=== PATIENT | male | born 1955 | race Caucasian/White ===

== ENCOUNTER 2020-12-21 15:00 | Emergency (ER) | payer OTHER, SELFPAY ==
[2020-12-21 15:01] VITALS: BP 135/80; PULSE 105; RESP 26; TEMP 39.1; O2SAT 93; BMI 31.5
--- NOTE | 2020-12-21 15:20 | EKG12_ITS ---
Test Reason : GENERAL ILLNESS Blood Pressure : / mmHG Vent. Rate : 099 BPM Atrial Rate : 099 BPM P-R Int : 186 ms QRS Dur : 140 ms QT Int : 376 ms P-R-T Axes : 062 075 030 degrees QTc Int : 482 ms Normal sinus rhythm with sinus arrhythmia Right bundle branch block Abnormal ECG Confirmed by SACHIN HANNAH, KIMMIE ([id number]), associate editor SILVERIO BOND ([id number]) on 12/24/2020 10:07:38 AM Referred By: KATYA Confirmed By:KIMMIE STEPHENSON MD
--- NOTE | 2020-12-21 15:22 | EDS_ITS ---
HPI History of Present Illness Chief Complaint: General Illness Informant: patient Onset/Context/Timing Onset: Days (3 days) Context: Gradual Onset Current Severity: Moderate Maximum Severity: Moderate Narrative Narrative: Patient presents secondary to fever, chills, body aches, headache for the past 3 days. He had decreased p.o. appetite but has been forcing himself to eat. No known exposures to Covid. He has not been vaccinated. He does report shortness of breath at rest and worse with exertion. PFSH [facility] Medical History (Updated 12/21/20 @ 18:[address] Kristin Alba MD) Prostate cancer no medical history Home Medications sildenafil [Viagra] 25 mg PO DAILY PRN 12/21/20 [History Last Taken Unknown] Allergy/AdvReac Type Severity Reaction Status Date / Time No Known Allergies Allergy Verified 12/21/20 15:04 no surgical history Social History Smoking Status: Never smoker ROS ROS ED Constitutional Constitutional ED: Reports chills, fever(s), subjective and sweats ENT ENT ED: Denies ear pain Cardiovascular Cardiovascular: Denies chest pain or palpitations Respiratory/Chest Respiratory/Chest: Reports cough, dyspnea and sputum Gastrointestinal Gastrointestinal: Denies abdominal pain, diarrhea, nausea or vomiting Genitourinary Genitourinary ED: Denies dysuria Musculoskeletal Musculoskeletal: Reports myalgias Integumentary Denies rash Neurologic Neurologic: Reports headache(s) Endocrine Endocrinology: Denies polydipsia or polyuria Allergic/Immunologic Allergic/Immunologic ED: Denies urticaria EXAM Physical Exam Const Vital Signs: 12/21/20 15:01 12/21/20 15:51 12/21/20 15:52 Temperature 102.3 F H 103.3 F H Temperature Source Temporal Oral Pulse Rate 105 H 99 Respiratory Rate 26 H 19 H Respiratory Effort Normal Non-Labored Respiratory Pattern Normal Blood Pressure 135/80 H 149/107 H Blood Pressure Mean 98 121 Pulse Ox 93 94 Oxygen Delivery Method Room Air Room Air 12/21/20 17:04 Temperature 100.4 F H Temperature Source Oral Pulse Rate 88 Respiratory Rate 18 Respiratory Effort Respiratory Pattern Blood Pressure 151/89 H Blood Pressure Mean 109 Pulse Ox 95 Oxygen Delivery Method Room Air Positive well nourished and well developed General Appearance ED: well developed HEENT Reports moist mucous membranes Eyes PERRL and EOMs intact bilaterally Neck supple Chest Wall inspection of chest normal and palpation of chest normal Resp normal respiratory effort Auscultation: diminished lung sounds Cardio regular rate and regular rhythm GI normal to inspection, nondistended, normoactive bowel sounds and non-tender Palpation: soft Extremity normal to inspection Neuro oriented x3 and no sensory deficits noted Sensorium / Orientation: alert Motor Exam: strength 5/5 throughout Psych mental status grossly normal Skin no rashes or lesions noted MDM MDM MDM Narrative Medical decision making narrative: Rapid Covid swab is obtained. Chest x-ray, EKG, labs are obtained. Patient is given Tylenol for fever. Lab Data Attestation: I reviewed the patient's lab results. Labs: Laboratory Results - last 24 hr 12/21/20 12/21/20 12/21/20 15:45 15:45 15:45 WBC 8.6 RBC 5.37 Hgb 16.2 Hct 47.4 MCV 88.3 MCH 30.2 MCHC 34.2 RDW Std Deviation 41.0 RDW Coeff of Viraj 12.6 Plt Count 176 MPV 10.1 Immature Gran % (Auto) 0.200 Neut % (Auto) 85.8 H Lymph % (Auto) 5.3 L [place] % (Auto) 8.4 Eos % (Auto) 0.0 Baso % (Auto) 0.3 Absolute Neuts (auto) 7.4 Absolute Lymphs (auto) 0.46 L Nucleated RBC % 0 Differential Comment SEE COMMENT Platelet Estimate ADEQUATE RBC Morphology N CHROM Anisocytosis RARE D-Dimer Quant (PE/DVT) 2.67 H* Sodium 137 Potassium 4.3 Chloride 103 Carbon Dioxide 28.0 Anion Gap 6 BUN 18 Creatinine 1.11 Estim Creat Clear Calc 69.42 Est GFR (MDRD) Af Amer 86 Est GFR (MDRD) Non-Af 71 BUN/Creatinine Ratio 16.2 Glucose 119 H Lactic Acid Calcium 8.6 Total Bilirubin 0.70 AST 92 H ALT 139 H Alkaline Phosphatase 91 Total Protein 7.7 Albumin 3.6 Globulin 4.1 Albumin/Globulin Ratio 0.9 Procalcitonin 12/21/20 12/21/20 15:45 15:45 WBC RBC Hgb Hct MCV MCH MCHC RDW Std Deviation RDW Coeff of Viraj Plt Count MPV Immature Gran % (Auto) Neut % (Auto) Lymph % (Auto) [place] % (Auto) Eos % (Auto) Baso % (Auto) Absolute Neuts (auto) Absolute Lymphs (auto) Nucleated RBC % Differential Comment Platelet Estimate RBC Morphology Anisocytosis D-Dimer Quant (PE/DVT) Sodium Potassium Chloride Carbon Dioxide Anion Gap BUN Creatinine Estim Creat Clear Calc Est GFR (MDRD) Af Amer Est GFR (MDRD) Non-Af BUN/Creatinine Ratio Glucose Lactic Acid 1.2 Calcium Total Bilirubin AST ALT Alkaline Phosphatase Total Protein Albumin Globulin Albumin/Globulin Ratio Procalcitonin 0.30 H Radiography Chest X-Ray - ED: 1 View, Read by ED Physician, Normal, Heart, Lungs and Mediastinum Diagnostic Testing: Radiology Impression Chest X-Ray 12/21/20 15:46 IMPRESSION: No airspace consolidation or pleural effusion. Electronically Signed: Abel Majano MD ([place]) at 16:23 EDT , Service support , Chest CTA 12/21/20 16:30 IMPRESSION: No central or segmental pulmonary embolism. Limited due to insufficient pulmonary artery enhancement. Electronically Signed: Abel Majano MD ([place]) at 17:21 EDT , Service support , EKG Initial EKG: Attestation: I personally reviewed and interpreted this EKG as follows: Interpretation: Sinus Rhythm (Sinus at 99 with right bundle branch block. No acute ischemia. No prior studies available for comparison.) Treatment and Re-Evaluation Comments:: On repeat evaluation patient does to feel improved. Fever is down. Rapid Covid test is negative, however my suspicion remains high. Lab work is reviewed with him. He does have elevation in his ALT and AST. He denies any abdominal pain. Viral respiratory panel as well as Covid PCR are ordered. eugenia results are pending. Patient at this point is stable for discharge to home. If any of these test return positive I will call him tonight to let him know. Otherwise treatment at this point is supportive. He was encouraged to follow-up with his PCP this week for repeat evaluation. Return instructions are provided. Discharge Plan Triage Chief Complaint: General Illness ED Provider: Kristin Alba Dx/Rx/DC Orders Clinical Impression: Acute viral syndrome, Transaminitis Instructions: ED Viral Syndrome (Adult) Prescriptions: No Action sildenafil [Viagra] 25 mg Tablet 25 mg PO DAILY PRN (Reason: Erectile Dysfunction) RF: 0 Primary Care Provider: Jonatan Bennett Referrals: Jonatan Bennett MD [Primary Care Provider] - 3-5 Days Disposition Disposition: Home, self care
--- NOTE | 2020-12-21 15:25 | NURSING ---
NO OLD EKGS
--- NOTE | 2020-12-21 15:46 | RAD_ITS ---
STUDY: X-RAY CHEST REASON FOR EXAM: Male, 65 years old. cough TECHNIQUE: AP COMPARISON: None. FINDINGS: The lungs are clear and expanded. There is no demonstrated pleural abnormality. Normal size heart. Normal mediastinum and edwina. Normal visualized pulmonary arteries. There is atherosclerotic tortuosity of the aortic arch and descending thoracic aorta. Normal visualized thoracic spine. Normal visualized ribs, clavicles, and shoulders. There is no demonstrated abnormality of the visualized soft tissue structures of the upper abdomen. RAD/Chest 1 View (Portable) IMPRESSION: No airspace consolidation or pleural effusion. Electronically Signed: bAel Majano MD ([place]) at 16:23 EDT , Service support ,
[2020-12-21] MEDS: Acetaminophen 500 MG Tablet 1000 MG PO (15:48)
[2020-12-21 15:51] VITALS: BP 149/107; PULSE 99; RESP 19; TEMP 39.6; O2SAT 94
[2020-12-21 16:01] LABS: Absolute Lymphocyte Count 0.46 X10^3/uL (0.83-4.51); Absolute Neutrophil Count 7.4 X10^3/uL (2.0-7.7); Basophil# 0.03 X10^3/uL; Basophil% 0.3 % (0-1); Hematocrit 47.4 % (40-54); Hemoglobin 16.2 g/dL (13.0-16.5); Lymphocyte # 0.46 X10^3/ul (0.83-4.51); Lymphocyte % 5.3 % (19-41); Mean Corp Hgb Conc 34.2 g/dL (32-36); Mean Corpuscular Hgb 30.2 pg (27.0-32.0); Mean Corpuscular Volume 88.3 fL (80-94); Mean Platelet Vol. 10.1 fl (6.2-12.0); Monocyte# 0.72 X10^3/uL; Monocyte% 8.4 % (0-10); NRBC Flagged by Analyzer 0 % (0-5); Neutrophil # 7.37 X10^3/uL (2.7-7.7); Neutrophil % 85.8 % (47-70); POSITIVE DIFFERENTIAL YES; Platelet Count 176 K/mm3 (150-450); RBC Distribution Width CV 12.6 % (11.6-14.6); Red Blood Count 5.37 M/mm3 (4.6-6.2); White Blood Count 8.6 K/mm3 (4.4-11.0)
[2020-12-21 16:05] LABS: Differential Indicated SCAN CRITERIA MET
[2020-12-21 16:17] LABS: ALB/GLOB Ratio 0.9 RATIO (0.9-2.4); AST(SGOT) 92 U/L (15-37); Alanine Aminotransfer ALT/SGPT 139 U/L (16-61); Albumin, Serum 3.6 g/dL (3.2-5.0); Alkaline Phosphatase 91 U/L (45-117); Anion Gap 6 (5-15); BUN 18 mg/dL (7-18); BUN/Creat Ratio 16.2 RATIO (10-20); Calcium,Total 8.6 mg/dL (8.5-10.1); Chloride 103 mmol/L (98-107); Creatinine, Serum 1.11 mg/dL (0.70-1.30); D-Dimer Quantitative (DVT/PE) 2.67 FEU/ug/m (0.27-0.49); EST Glomerular Filtration Rate 71 mL/min (>60); Est Glom Filt Rate - Afr Amer 86 mL/min (>60); Estimated Creatinine Clearance 69.42 ml/min; Globulin 4.1 g/dL (2.2-4.2); Glucose 119 mg/dL (74-106); Potassium 4.3 mmol/L (3.5-5.1); Protein, Total 7.7 g/dL (6.4-8.2); Sodium Level 137 mmol/L (136-145)
[2020-12-21 16:23] LABS: Lactic Acid 1.2 mmol/L (0.4-1.9)
--- NOTE | 2020-12-21 16:30 | CT_ITS ---
STUDY: CTA CHEST REASON FOR EXAM: Male, 65 years old. sob RADIATION DOSAGE (If Supplied By Facility): CTDIvol = ( 12.84 ) mGy, DLP = ( 978.73 ) mGycm TECHNIQUE: The examination was performed with the intravenous administration of IV 100mL [id number]-[id number]. Post-processing of the angiographic images was performed, with multiplanar reformation and 3D reconstruction. Individualized dose optimization techniques were used for this CT. COMPARISON: None. FINDINGS: Normal enhancement of the main pulmonary artery and right and left pulmonary arteries. Normal enhancement of the bilateral peripheral pulmonary arteries. Limited evaluation of the lower lobe segmental branches due to motion artifact. There is no demonstrated pulmonary embolism. Normal thoracic aorta and visualized great vessels. There is no demonstrated aortic dissection. Normal heart and pericardium. There are calcifications of the coronary arteries. Normal mediastinum. Normal hilar regions. Normal visualized trachea and bronchi. The lungs are well expanded. There are a few scattered fibrotic bands in the right more than left lower lobes. Normal pleura. Normal chest wall structures. There are degenerative changes of thoracic spine. Normal visualized upper abdomen. CT/CTA Chest W/WO Contrast IMPRESSION: No central or segmental pulmonary embolism. Limited due to insufficient pulmonary artery enhancement. Electronically Signed: Abel Majano MD ([place]) at 17:21 EDT , Service support ,
[2020-12-21 16:41] LABS: Platelet Estimate ADEQUATE (ADEQ); Red Cell Morphology N CHROM NORMAL (NORM C&C)
[2020-12-21 16:42] LABS: Anisocytosis RARE
[2020-12-21 17:04] VITALS: BP 151/89; PULSE 88; RESP 18; TEMP 38; O2SAT 95
[2020-12-21 18:46] VITALS: BP 132/96; PULSE 75; RESP 20; O2SAT 97
--- NOTE | 2020-12-21 18:46 | ED.RN ---
THIS NURSE REVIEWED D/C INSTRUCTIONS WITH PT AND . BOTH VERBALIZED UNDERSTANDING OF INSTRUCTIONS. IVS D/C. IV CATHETERS INTACT. PT TOLERATED WELL. PT DENIES FURTHER NEEDS OR QUESTIONS AT THIS TIME. PT AMBULATES FROM ROOM ON OWN WITHOUT ASSISTANCE FROM STAFF
== END 2020-12-21 18:47 | disposition home or self-care (01) ==
PROVIDERS: Emergency Provider Emergency Medicine; PCP Family Medicine
DX: B34.9 Viral infection, unspecified (principal); R74.01 Elevation of levels of liver transaminase levels; M79.10 Myalgia, unspecified site; R05 Cough; R06.00 Dyspnea, unspecified; R51.9 Headache, unspecified; I45.10 Unspecified right bundle-branch block; Z85.46 Personal history of malignant neoplasm of prostate
CPT/HCPCS: 71045; 71275; 80053; 83605; 84145; 85025; 85379; 87040; 87426; 87633; 87635; 93005; 99284; Q9967; U0005; U0003

== ENCOUNTER → 2022-01-13 | Outpatient (CLI) | payer BC, SELFPAY ==
--- NOTE | 2022-01-13 14:47 | CT_ITS ---
STUDY: CT MAXILLOFACIAL SINUSES REASON FOR EXAM: Male, 66 years old. CHRONIC SINUSITIS X 1 YEAR RADIATION DOSAGE (If Supplied By Facility): CTDIvol = ( 33.06 ) mGy, DLP = ( 809.06 ) mGycm TECHNIQUE: The patient was scanned in a multi detector CT scanner. High resolution axial imaging was performed without the administration of intravenous contrast material. Sagittal and coronal images were reconstructed. Individualized dose optimization techniques were used for this CT. COMPARISON: None. FINDINGS: FRONTAL SINUSES: Normal aeration, without mucosal inflammatory disease. ETHMOIDAL SINUSES: Normal aeration, without mucosal inflammatory disease. MAXILLARY SINUSES: Partial opacification of the left maxillary sinus. SPHENOIDAL SINUSES: Normal aeration, without mucosal inflammatory disease. There is patency of the bilateral maxillary infundibuli with normal uncinate processes, ethmoid bullae, and hiatus semilunaris. There are domonique bullosa of the bilateral turbinates. Normal bilateral inferior turbinates. Normal midline nasal septum. There is patency of the bilateral nasal airways. The visualized osseous structures are normal. The visualized bilateral orbital contents are normal. CT/Sinus/Facial Bone IMPRESSION: Partial opacification of the left maxillary sinus. Electronically Signed: Chetan López MD at 15:20 EDT ,
== END | disposition home or self-care (01) ==
PROVIDERS: PCP Family Medicine; Referring Provider Otolaryngology; Visit Provider Otolaryngology
DX: J32.9 Chronic sinusitis, unspecified (principal)
CPT/HCPCS: 70486

== ENCOUNTER → 2025-06-15 | Outpatient (CLI) | payer MEDICARE, SELFPAY ==
--- OUTSIDE RECORDS SUMMARY | 2025-06-15 05:59 | XMS RPT_ITS | CCD ---
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 Glenn Julien Unavailable Reymundo HANNAH, Dr. Tate ([facility]) Unavailable David HANNAH, All Mercer Unavailable Shar CROWN BUFFER, Ailin C Unavailable Unavailable Donald HANNAH, Jonatan Berry Unavailable Praneeth, Rahda C Unavailable Unavailable Yann CROWN BUFFER, Maria De Jesus Unavailable Unavailable Marthey CROWN BUFFER, Nadine Unavailable Unavailable Odin HAY CHOPPER, Christel Unavailable Unavailable Richert CROWN BUFFER, Makenna L Unavailable Unavailab le Kassy CROWN BUFFER, Catalina M Unavailable Unavailab le [place] CROWN BUFFER, Nicky Unavailable Unavailab le [place] CROWN BUFFER, Rafaela N Unavailable Unavaila ble Unavailable Unavailable Macho CROWN BUFFER, Tyree Unavailable Unavailable Floyd COOK, Penny Berry Unavailable Unavaila ble Sonia CROWN BUFFER, Jen Unavailable ORLANDO VILLARREAL E Admitting Unavailable ORLANDO VILLARREAL E Attending Unavailable ORLANDO VILLARREAL E Primary Care Unavailable DANO VILLARREALKE E Consulting Unavailable PROVIDER, UNKNOWN Consulting Unavailable [facility] Unavailable Alesia Balderrama Unavailable Unavailable Jonatan Bennett Primary Care Unavailable Orlando Villarreal Referring Unavailable Des Walton Attending Unavailable Roof ELECTRONIC GAME DEVELOPER, Jackson Navarro Attending Unavailable Orlando Villarreal Primary Care Unavailable Orlando Villarreal Referring Unavailable Roof ELECTRONIC GAME DEVELOPER, Jackson Navarro Referring Unavailable Orlando Villarreal Primary Care Unavailable Roof ELECTRONIC GAME DEVELOPER, Jackson Navarro Attending Unavailable Medications Current Medications Medication Drug Class(es) Dates Sig (Normalized) Sig (Original) sildenafil 50 mg oral tablet (15 sources) Phosphodiesterase 5 Inhibitor Start: 06-13-2024 sildenafiL 50 mg tablet ; 1 (one) Tablet one hour prior to intercourse for 0 days Quantity: 12 {Tablet} Refills: 2 Ordered: 13-Jun-2024 SHAYY Villarreal Start: 13-Jun-2024 Comments: GoodRx--not to insurance Start: 02-19-2022 End: 10-25-2023 sildenafiL 50 mg tablet ; 1 (one) Tablet one hour prior to intercourse for 0 days Quantity: 12 {Tablet} Refills: 2 Ordered: 25-Oct-2023 WALLACE Moscoso Kenya Gutierrez Start: 19-Feb-2022 End: 25-Oct-2023 Status: Inactive Comments: GoodRx--not to insurance Start: 12-21-2020 take 1 tablet by shanna th once daily Sildenafil (Viagra) 25 mg Tablet Active 25 MG PO DAILY December 21, 2020 12:00am Comment on above: GoodRx--not to insur ance Completed/Discontinued Medications Medication Drug Class(es) Dates Sig (Normalized) Sig (Original) azithromycin 500 mg oral tablet (14 sources) Macrolide Antimicrobial Start: 02-04-2016 End: 02-07-2016 take 1 tablet by mouth once daily AZITHROMYCIN, 500MG (Oral Tablet) ; 1 (one) Tablet daily for 3 days Quantity: 3 {Tablet} Refills: 0 Ordered: 04-Feb-2016 MD Jonatan Bennett Start: 04-Feb-2016 End: 07-Feb-2016 Status: Inactive cephalexin 500 mg oral capsule (14 sources) Cephalosporin Antibacterial Start: 10-25-2023 End: 11-04-2023 cephALEXin 500 mg capsule ; 2 (two) capsule bid for 10 days Quantity: 40 {Capsule} Refills: 0 Ordered: 25-Oct-2023 MD All Hernandez Start: 25-Oct-2023 End: 04-Nov-2023 Status: Inactive ciprofloxacin 500 mg oral tablet (14 sources) Quinolone Antimicrobial Start: 01-27-2016 End: 02-01-2016 take 1 tablet by mouth twice daily CIPROFLOXACIN HCL, 500MG (Oral Tablet) ; 1 (one) Tablet two times daily for 5 days Quantity: 10 {Tablet} Refills: 0 Ordered: 27-Jan-2016 MD Jonatan Bennett Start: 27-Jan-2016 End: 01-Feb-2016 Status: Inactive Problems Active Problems Problem Classification Problem Date Documented Date Episodic/Chronic Cancer of prostate (20 sources) Malignant tumor of prostate; Translations: [Malignant neoplasm of prostate] 10-25-2023 Chronic Comment on above: s/p prostatectomy 20 16 @ [facility] Cancer of prostate (20 sources) History of malignant neoplasm of prostate; Translations: [Personal history of malignant neoplasm of prostate] 10-25-2023 Episodic Cardiac dysrhythmias (20 sources) Heart irregularly irregular; Translations: [Cardiac arrhythmia, unspecified] Onset: 05-16-2025 06-13-2024 Chronic Conduction disorders (7 sources) Heart block ; Translations: [Conduction disorder, unspecified] Onset: 08-16-2024 07-04-2024 Chronic Disorders of lipid metabolism (20 sources) Hyperlipidemia; Translations: [Hyperlipidemia, unspecified] Onset: 05-16-2025 06-13-2024 Chronic Comment on above: 10 year CV = 17.09% Essential hypertension (2 sources) Essential (primary) hypertension; Translations: [Essential (primary) hypertension] Onset: 05-16-2025 Chronic Immunizations and screening for infectious disease (20 sources) Requires diphtheria, tetanus and pertussis vaccination; Translations: [Encounter for immunization] 02-15-2014 Episodic Noninfectious gastroenteritis (20 sources) Acute gastroenteritis; Translations: [Noninfective gastroenteritis and colitis, unspecified] 02-04-2016 Episodic Other connective tissue disease (20 sources) Inflammation of rotator cuff tendon; Translations: [Other shoulder lesions, unspecified shoulder] 10-25-2023 Episodic Other ear and sense organ disorders (20 sources) Hearing loss of left ear; Translations: [Impacted cerumen, left ear] 10-25-2023 Episodic Other liver diseases (1 source) Enzyme level - finding; Translations: [Elevated transaminase measurement] Episodic Other male genital disorders (20 sources) Male erectile dysfunction, unspecified; Translations: [Impotence of organic origin] 10-25-2023 Chronic Other nutritional; endocrine; and metabolic disorders (20 sources) Body mass index 30+ - obesity; Translations: [Body mass index (BMI) 33.0-33.9, adult] 10-25-2023 Chronic Other nutritional; endocrine; and metabolic disorders (20 sources) Obesity; Translations: [Obesity, unspecified] 10-25-2023 Chronic Other nutritional; endocrine; and metabolic disorders (2 sources) Obesity, unspecified; Translations: [Obesity, unspecified] Onset: 05-16-2025 Chronic Other screening for suspected conditions (not mental disorders or infectious disease) (20 sources) Raised prostate specific antigen; Translations: [Elevated prostate specific antigen [PSA]] Onset: 05-25-2025 10-25-2023 Episodic Other upper respiratory infections (20 sources) Sinusitis; Translations: [Chronic sinusitis, unspecified] 10-25-2023 Chronic Unclassified (14 sources) Number of Children 02-15-2014 Comment on above: 3. Unclassified (14 sources) Well adult male - The patient feels well with no complaints (joint aches and pains), has good energy level and is sleeping poorly (sleeps good 3-4 hours then tosses and turns pr will go sleep in the chair). The patient has a balanced diet. 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 The patient sleeps 6 (6-7 but broken) hours per night. Note for Well adult male: MICHAEL 01/2016 lipid glucosept needs a referral for a Urologist - said it was nothing against Dr. White but does want a new referral 06-25-2020 Viral infection (20 sources) Acute viral disease; Translations: [Viral infection, unspecified] 12-23-2020 Episodic Past or Other Problems Problem Classification Problem Date Documented Da te Episodic/Chronic Unclassified (14 sources) Cold Symptoms - Symptoms include sneezing, nasal congestion, runny nose, ear fullness, dry cough and wheezing, but do not include fever, chills, general malaise, headache or facial pain. The onset was sudden 1 month(s) ago. The symptoms occur constantly. The patient describes this as moderate in severity and worsening (worse over the past two weeks.). Current treatment includes allergy medications and nasal corticosteroids. Note for Upper respiratory infection: reviewed by [facility] 10-25-2023 Unclassified (14 sources) MCR Well Adult - In general the patient feels well with no complaints, has good energy level and is sleeping well. The patient has a balanced diet. The patient exercises daily and sleeps 6 hours per night. The patient denies having trouble with bathing, dressing/grooming, toileting, preparing meals and ambulating. The patient has a Healthcare Power of Assistant Softball Coach and a Living Will. 03-17-2022 Unclassified (14 sources) Follow up consultation - The patient is here to follow-up after Emergency Room/Urgent Care ([facility] with viral syndrome.) on : (12-21-20). Note for Consultation follow-up: Continues with shortness of breath and headache and decreased appetite and increased fatigue. Had a negative rapid Covid test, PCR test is pending 12-23-2020 Unclassified (14 sources) Gastro symptoms - Patient was seen by Dr. Bennett on 01/27/16 for acute gastro symptoms. He was given Cipro. Patient reports his symptoms resolved with the antibiotics. However, in the past 48-72 hours he developed a loss of appetite, frequent stools (6-8 times a day/soft-not diarrhea), fatigue, and dry mouth. Afebrile. No nausea or vomiting. Patient denies any significant abdominal pain. Patient's weight is down 3# since his last visit. 02-04-2016 Unclassified (14 sources) Diarrhea - The onset of the diarrhea has been acute and has been occurring in a persistent pattern for 9 days. The course has been recurrent. The stools are watery (loose stools). The frequency of bowel movements has been 8 per day. The volume of the stools is normal. The symptoms have been associated with nausea (one day), while the symptoms have not been associated with abdominal pain. Note for Diarrhea: Complains of abdominal bloating and no appetite. Weight is down 13 pounds since October. 01-27-2016 Unclassified (14 sources) Shoulder pain - The onset of the shoulder pain has been gradual following no specific incident and has been occurring in an intermittent pattern for 6 months. The course has been worsening. The pain is characterized as a moderate sharp stabbing. The pain is described as being located in the right shoulder and is aggravated by physical activity, work duties, overhead activity, lifting and throwing. Relieving factors include medication (Advil) and modification of activity. The symptoms have been associated with anterior instability, posterior instability, multidirectional instability, painful ROM, decreased ROM, popping/crepitus, difficulty with overhead activities, difficulty dressing oneself, difficulty combing hair, difficulty with pushing, difficulty with pulling and difficulty with lifting, but have not been associated with joint swelling, erythema, burning sensation, fever or chills. There has been no previous diagnostic testing. There have been no previous evaluations. There has been no previous physical therapy. There has been no previous surgery. There has been no use of assistive devices. Previous medication use has included Ibuprofen. Note for Shoulder pain: Note: Patient had a MRI done on prostate approx 1 month ago at [facility]. 11-05-2015 Unclassified (14 sources) Well Adult, male - The patient feels well with no complaints, has good energy level and is sleeping well. The patient has a balanced diet and takes no supplemental vitamins & iron. The patient exercises weekly. The patient sleeps 7 hours per night. 02-15-2014 Unclassified (14 sources) Well Adult, male - The patient feels well with no complaints, has good energy level and is sleeping well. Date of most recent cholesterol screening : (). Date of most recent glucose screening : (). Patient has not had a Pneumovax vaccine. Patient has not received a recent influenza vaccine. Last Tetanus booster: more than 10 year(s) ago. The patient has a balanced diet and takes no supplemental vitamins & iron. Patient does not exercise. Patient sleeps 7 hours per night. 08-19-2011 Unclassified (9 sources) MCR Well Adult - In general the patient feels well with no complaints, has good energy level and is sleeping well. The patient has a balanced diet and takes no supplemental vitamins & iron. The patient does not exercise and sleeps 7 hours per night. The patient denies having trouble with bathing, dressing/grooming, toileting, preparing meals and ambulating. The patient denies having trouble with grocery shopping, driving, use of telephone, housework, laundry, preparing/taking medications and finances. The patient has a Healthcare Power of Assistant Softball Coach and a Living Will. Note for MCR Well Adult: Last Colonoscopy 11/23/2011.Declines flu vaccine for today. 06-13-2024 Results Test Name Value Interpretation Reference Range Facility Cardiology Visit Reporton Cardiology Visit Report [facility] 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 He established with us in July 2024 for evaluation regarding an irregular heartbeat. He said he went in for routine physical and EKG was done which was noted to be abnormal. He was sent for Holter monitor and it demonstrated sinus rhythm with an average heart rate of 57 bpm premature atrial and ventricular complexes was noted. He was asked to see cardiology. His resting EKG at initial visit demonstrated sinus rhythm with a rate of 81 bpm first-degree AV block and right bundle branch block. Previous lipid profile demonstrated total cholesterol 222 HDL of 53 and LDL of 147. His physical exam was unremarkable. He denies chest, arm, jaw, or neck discomfort. He denies palpitations. He denies bilateral lower extremity edema. He denies claudication. He denies shortness of breath with activity, shortness of breath at rest, orthopnea, or PND. He denies chronic cough. He denies significant, sudden weight gain. He denies lightheadedness, dizziness, near-syncope, or syncope. He denies blood in urine, blood in stool, or epistaxis. He denies fever with chills. He denies myalgia. He denies fatigue. His exercise level has remained stable. Intake Vital Signs 08/16/24 10:19 05/16/25 07:37 Height 5 ft 10 in 5 ft 10 in Weight: 229 lb 236 lb BMI 32.8 33.8 BP 166/88 H 136/89 H Blood Pressure Location Lt brachial Lt brachial Position Sitting Sitting Respiration 16 18 Pulse 85 97 Pulse Source Monitor Monitor Pulse Oximetry (%) 98 Intake Visit Reasons: 9 M School Vocational Educator Required: No Is patient in pain?: No Allergies No Known Allergies Allergy (Verified 05/16/25 09:35) Medications ???Medication ???Instructions ???Recorded ???Confirmed ???Type sildenafil 25 mg tablet (Viagra) 25 mg PO DAILY PRN Erectile 05/16/25 History Dysfunction losartan 100 mg tablet 100 mg PO QDAY #90 tabs 08/16/24 1 Rx rosuvastatin 10 mg tablet 10 mg PO QDAY #90 tabs 08/16/24 Rx Have you fallen in the past year?: No PFSH Medical History Erectile dysfunction Irregularly irregular heart rhythm Heart block Hyperlipidemia Obesity Prostate cancer Surgical History H/O vasectomy Family History Father Hypertension Social History Smoking Status: Never smoker alcohol intake: current alcohol intake frequency: holidays/special occasions only substance use type: does not use ROS Const Const: Negative for fatigue, weakness, headache(s) or frequent falls Eyes Eyes: Negative for blurry vision ENT ENT: Negative for headache(s), dizziness or Nosebleed/epistaxis Cardio Chest Pain: No Palpitations: No Edema: None Muscle aches with walking: None Resp Respiratory: Negative for SOB with activity, SOB at rest or SOB orthopnea SOB lying down GI GI: Negative nausea, vomiting, heartburn, bright, red blood in stools or black,tarry stools : Negative for hematuria Musc Musc: Negative for muscle aches/ myalgia Skin Skin: Negative non-healing lesions or rash Neuro Neuro: Negative for dizziness, lightheadedness, near syncope, syncope, frequent falls, headache(s), weakness or blurry vision Endo Endo: Negative for fatigue Allergy Allergy/Immunology: Negative for rash Cardiology Exam Const Appearance: cooperative, healthy appearing, comfortable and no acute distress Nutritional Appearance: well nourished and obese Orientation: alert, awake and oriented x3 Head Head: normal to inspection Ears: hearing grossly normal bilaterally Nose: external nose normal Face and Sinus: face symmetric Mouth: moist mucous membranes Eyes General: appearance normal, both eyes and all related structures Eyelids: eyelids normal EOM: EOM intact bilaterally Neck Neck: normal visual inspection and no JVD Carotids: normal carotid upstroke Chest Chest inspection: normal inspection of the chest, symmetric chest movement and normal respiratory effort; Negative cough Auscultation: Bilateral: Clear to Auscultation Cardio Rate: regular rate Rhythm: regular rhythm Heart sounds: S1 normal and S2 normal; Negative rub, gallop or murmur GI GI: normal to inspection and obese Neuro General: p (more content not included)... Normal [facility] LIPID PANEL, STANDARDon 05- Cholesterol [Mass/Vol] 155 mg/dL Normal <200 [facility] Comment on above: Performed By: #### 7 600 #### [facility] [address], [address] [place] [address] Geophysical Laboratory Supervisor: Arthur Michele MD Cholesterol in HDL [Mass/Vol] 48 mg/dL Normal > OR = 40 [facility] Comment on above: Performed By: #### 7 600 #### [facility] [place] [address] Geophysical Laboratory Supervisor: Arthur Michele MD Cholesterol in LDL [Mass/Vol] 82 mg/dL Normal [facility] Comment on above: Result Comment: Refe rence range: <100 Desirable range <100 mg/dL for primary prevention; <70 mg/dL for patients with CHD or diabetic patients with > or = 2 CHD risk factors. LDL-C is now calculated using the Imtiaz calculation, which is a validated novel method providing better accuracy than the Friedewald equation in the estimation of LDL-C. Alton SS et al. ALLY. 2013;310(19): 6702-6376 (http://education.Arista Power.BOKU/faq/UNU392) Performed By: #### 7 600 #### [facility] [address], [address] [place] [address] Geophysical Laboratory Supervisor: Arthur Michele MD Cholesterol.total/Ch olesterol in HDL [Mass ratio] 3.2 {ratio} Normal <5.0 [facility] Comment on above: Performed By: #### 7 600 #### [facility] [address], [address] [place] [address] Geophysical Laboratory Supervisor: Arthur Michele MD NON HDL CHOLESTEROL 107 mg/dL (calc) Normal <130 [facility] Comment on above: Result Comment: For patients with diabetes plus 1 major ASCVD risk factor, treating to a non-HDL-C goal of <100 mg/dL (LDL-C of <70 mg/dL) is considered a therapeutic option. Performed By: #### 7 600 #### [facility] [address], [address] [place] [address] Geophysical Laboratory Supervisor: Arthur Michele MD Triglyceride [Mass/Vol] 155 mg/dL High <150 [facility] Comment on above: Performed By: #### 7 600 #### [facility] [address], [address] [place] [address] Geophysical Laboratory Supervisor: Arthur Michele MD 12 Lead EKG performed by [facility] [place] 08-16-2024 12 Lead EKG performed by [address] [address] 12 Lead EKG performed by [facility] 08/16/24 1019 MR#: [id number] Acct: [id number] Name: DANIEL HANCOCK Rep #: [id number] : 1955 69 From: Des Walton MD Attending Dr: Dr. Des Walton MD Status: DEP A MB Ordering Dr: Des Walton MD Date: 08/16/24 Location: [facility] Sex: M C Admitted: [facility] Lead EKG performed by [facility] ECG Report Interpretation ----Sinus Rhythm -First degree A-V block -With rate variation Naomi = 220 cv = 11.-Right bundle branch block. -Left atrial enlargement. ABNORMAL Electronically signed on 08/16/2024 at 15:15 by Des Waltonwood Software Version [id number] 08/16/24 1516 Date Des Walton MD CC: Dr. Jonatan Bennett MD Date Dictated: 08/16/24 1019 Date Transcribed: 08/16/24 101 Home Worker: [place] Signed Normal [facility] Cardiology Visit Reporton Cardiology Visit Report [facility] [address] [place] [address] OFFICE VISIT Date of Service: 08/16/24 MR#: [id number] Acct: [id number] Name: DANIEL HANCOCK Rep #: [id number] : 1955 Provider: Dr. 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 He said he went in for routine physical and EKG was done which was noted to be abnormal he was sent for Holter monitor and it demonstrated sinus rhythm with an average heart rate of 57 bpm premature atrial and ventricular complexes was noted. He was asked to see cardiology. His resting EKG demonstrates sinus rhythm with a rate of 81 bpm first-degree AV block and right bundle branch block. Previous lipid profile demonstrated total cholesterol 222 HDL of 53 and LDL of 147. His physical exam today is otherwise unremarkable Intake Vital Signs 12/21/20 15:01 08/16/24 10:19 Height 5 ft 10 in 5 ft 10 in Weight: 229 lb BMI 32.8 BP 166/88 H Blood Pressure Location Lt brachial Position Sitting Respiration 16 Pulse 85 Pulse Source Monitor Intake Visit Reasons: Heart Block (Praneeth) School Vocational Educator Required: No Accompanied by: Self Is patient in pain?: No Allergies No Known Allergies Allergy (Verified 08/16/24 10:26) Medications ???Medication ???Instructions ???Recorded ???Confirmed ???Type sildenafil 25 mg tablet (Viagra) 25 mg PO DAILY PRN Erectile 12/21/20 07/10/24 History Dysfunction losartan 100 mg tablet 100 mg PO QDAY #90 tabs 08/16/24 08/16/24 Rx rosuvastatin 10 mg tablet 10 mg PO QDAY #90 tabs 08/16/24 08/16/24 Rx Have you fallen in the past year?: No PFSH Medical History Erectile dysfunction Irregularly irregular heart rhythm Heart block Hyperlipidemia Obesity Prostate cancer Surgical History H/O vasectomy Family History Father Hypertension Social History Smoking Status: Never smoker alcohol intake: current alcohol intake frequency: holidays/special occasions only substance use type: does not use ROS Const Const: Negative for fatigue, weakness, headache(s), daytime sleepiness or difficulty sleeping ENT ENT: Negative for headache(s), dizziness or Nosebleed/epistaxis Cardio Chest Pain: No Palpitations: No Edema: None Resp Respiratory: Negative for SOB with activity, SOB at rest, SOB orthopnea SOB lying down or Cough GI GI: Negative nausea, vomiting or heartburn Neuro Neuro: Negative for dizziness, lightheadedness, near syncope, headache(s) or weakness Endo Endo: Negative for fatigue Cardiology Exam Const Appearance: cooperative, healthy appearing, no acute distress, well developed and well groomed Nutritional Appearance: average body habitus and well nourished Orientation: alert, awake and oriented x3 Head Head: normal to inspection, normocephalic and atraumatic Ears: hearing grossly normal bilaterally and external ears normal Nose: external nose normal, nares normal, nasal mucous membranes and turbinates normal, septum normal and no nasal discharge Face and Sinus: face symmetric Mouth: oral mucosae normal, tongue normal, oropharynx normal and moist mucous membranes Teeth and gingiva: dentition normal Throat: posterior oropharynx normal, tonsils normal and uvula midline Eyes General: appearance normal, both eyes and all related structures Eyelids: eyelids normal Conjunctivae: conjunctivae normal Pupils: PERRL, normal by confrontation and accommodation normal EOM: EOM intact bilaterally Neck Neck: normal visual inspection, trachea midline and no JVD JVD: +5 Carotids: normal carotid upstroke and bounding pulses Chest Chest inspection: normal inspection of the chest, symmetric chest movement and normal respiratory effort Auscultation: Bilateral: Clear to Auscultation Cardio Palpation: normal PMI Rate: regular rate Rhythm: regular rhythm Heart sounds: S1 normal, S2 normal and normal, physiologic split S2; Negative rub, gallop or murmur GI GI: normal to inspection, soft, no hepatosplenomegaly and bowel sounds present Neuro General: patient alert, patient awake, patient oriented x3, gait normal, moves all extremities and no focal sensory deficit Skin Skin: no rashes or lesions noted Extremities Pulses: Normal: Right Femoral Pulse, Left Femoral Pulse, Right Dorsalis Pedis Pulse, Left Dorsalis Pedis Pulse, Right Posterior Tibial Pulse, Left Posterior Tibial Pulse, Right Radial Pulse and Left Radial Pu (more content not included)... Normal [facility] COMPREHENSIVE METABOLIC PANE [facility] 06-06-2024 Albumin [Mass/Vol] 4.6 g/dL Normal 3.6-5.1 [facility] Comment on above: Performed By: #### 7 600, 5352, 37091 #### [facility] [place] [address] [facility] Supervisor: Arthur Michele MD Albumin/Globulin [Mass ratio] 1.8 {ratio} Normal 1.0-2.5 [facility] Comment on above: Performed By: #### 7 600, 5363, 18699 #### [facility] [place] [address] [facility] Supervisor: Arthur Michele MD ALP [Catalytic activity/Vol] 60 U/L Normal 35-144 [facility] Comment on above: Performed By: #### 7 600, 5363, 44229 #### [facility] [place] [address] [facility] Supervisor: Arthur Michele MD ALT [Catalytic activity/Vol] 16 U/L Normal 9-46 [facility] Comment on above: Performed By: #### 7 600, 5363, 64700 #### [facility] of [address], [address] [place] [address] [facility] Laboratory Supervisor: Arthur Michele MD AST [Catalytic activity/Vol] 12 U/L Normal 10-35 [facility] Comment on above: Performed By: #### 7 600, 5363, 28823 #### [facility] of [address], [address] [place] [address] [facility] Supervisor: Arthur Michele MD Bilirubin [Mass/Vol] 0.7 mg/dL Normal 0.2-1.2 [facility] Comment on above: Performed By: #### 7 600, 5363, 22520 #### [facility] of [address], [address] [place] [address] [facility] Supervisor: Arthur Michele MD BUN/CREATININE RATIO SEE NOTE: Normal 6-22 [facility] Comment on above: Result Comment: Not Reported: BUN and Creatinine are within reference range. Performed By: #### 7 600, 5363, 45473 #### [facility] of [address], [address] [place] [address] [facility] Supervisor: Arthur Michele MD Calcium [Mass/Vol] 9.7 mg/dL Normal 8.6-10.3 [facility] Comment on above: Performed By: #### 7 600, 5363, 88269 #### [facility] of [place] [address] [facility] Supervisor: Arthur Michele MD Chloride [Moles/Vol] 105 mmol/L Normal 98-110 [facility] Comment on above: Performed By: #### 7 600, 5363, 79695 #### [facility] of [address], [address] [place] [address] [facility] Supervisor: Arthur Michele MD CO2 [Moles/Vol] 26 mmol/L Normal 20-32 [facility] Comment on above: Performed By: #### 7 600, 5363, 54937 #### [facility] of [address], [address] [place] [address] [facility] Supervisor: Arthur Michele MD Creatinine [Mass/Vol] 0.99 mg/dL Normal 0.70-1.35 [facility] Comment on above: Performed By: #### 7 600, 5363, 82229 #### [facility] [place] [address] [facility] Supervisor: Arthur Michele MD GFR/1.73 sq M.predicted among non-blacks MDRD (S/P/Bld) [Vol rate/Area] 83 mL/min/{1.73_m2} Normal > OR = 60 [facility] Comment on above: Performed By: #### 7 600, 5363, 85256 #### [facility] [place] [address] [facility] Supervisor: Arthur Michele MD Globulin (S) [Mass/Vol] 2.6 g/dL Normal 1.9-3.7 [facility] Comment on above: Performed By: #### 7 600, 5363, 59975 #### [facility] [place] [address] [facility] Supervisor: Arthur Michele MD Glucose [Mass/Vol] 108 mg/dL High 65-99 [facility] Comment on above: Result Comment: Fasting reference interval For someone without known diabetes, a glucose value between 100 and 125 mg/dL is consistent with prediabetes and should be confirmed with a follow-up test. Performed By: #### 7 600, 5363, 84143 #### [facility] [place] [address] [facility] Supervisor: Arthur Michele MD Potassium [Moles/Vol] 4.4 mmol/L Normal 3.5-5.3 [facility] Comment on above: Performed By: #### 7 600, 5363, 24617 #### [facility] [place] [address] [facility] Supervisor: Arthur Michele MD Protein [Mass/Vol] 7.2 g/dL Normal 6.1-8.1 [facility] Comment on above: Performed By: #### 7 600, 5363, 40677 #### [facility] [address], [address] [place] [address] [facility] Laboratory Supervisor: Arthur Michele MD Sodium [Moles/Vol] 138 mmol/L Normal 135-146 [facility] Comment on above: Performed By: #### 7 600, 5363, 13371 #### [facility] of [address], [address] [place] [address] [facility] Laboratory Supervisor: Arthur Mcihele MD Urea nitrogen [Mass/Vol] 24 mg/dL Normal 7-25 [facility] Comment on above: Performed By: #### 7 600, 5363, 38275 #### [facility] [place] [address] [facility] Laboratory Supervisor: Arthur Michele MD LIPID PANEL, [address] Cholesterol [Mass/Vol] 222 mg/dL High <200 [facility] Comment on above: Performed By: #### 7 600, 5363, 12321 #### [facility] of [place] [address] [facility] Supervisor: Arthur Michele MD Cholesterol in HDL [Mass/Vol] 53 mg/dL Normal > OR = 40 [facility] Comment on above: Performed By: #### 7 600, 5363, 52350 #### [facility] of [place] [address] [facility] Supervisor: Arthur Michele MD Cholesterol in LDL [Mass/Vol] 147 mg/dL High [facility] Comment on above: Result Comment: Refe rence range: <100 Desirable range <100 mg/dL for primary prevention; <70 mg/dL for patients with CHD or diabetic patients with > or = 2 CHD risk factors. LDL-C is now calculated using the Imtiaz calculation, which is a validated novel method providing better accuracy than the Friedewald equation in the estimation of LDL-C. Alton BROWN et al. ALLY. 2013;310(19): 3754-8978 (http://education.[employer].BOKU/faq/TSW602) Performed By: #### 7 600, 5363, 72274 #### [facility] [place] [address] [facility] Supervisor: Arthur Michele MD Cholesterol.total/Ch olesterol in HDL [Mass ratio] 4.2 {ratio} Normal <5.0 [facility] Comment on above: Performed By: #### 7 600, 5363, 50074 #### [facility] [place] [address] [facility] Supervisor: Arthur Michele MD NON HDL CHOLESTEROL 169 mg/dL (calc) High <130 [facility] Comment on above: Result Comment: For patients with diabetes plus 1 major ASCVD risk factor, treating to a non-HDL-C goal of <100 mg/dL (LDL-C of <70 mg/dL) is considered a therapeutic option. Performed By: #### 7 600, 5363, 71528 #### [facility] [place] [address] [facility] Supervisor: Arthur Michele MD Triglyceride [Mass/Vol] 106 mg/dL Normal <150 [facility] Comment on above: Performed By: #### 7 600, 5363, 39761 #### [facility] [place] [address] [facility] Supervisor: Arthur Michele MD PSA, TOTALon 06-06-2024 PSA, TOTAL <0.04 Normal < OR = 4.00 [facility] Comment on above: Result Comment: The total PSA value from this assay system is standardized against the WHO standard. The test result will be approximately 20% lower when compared to the equimolar-standardized total PSA (Macey Sylvia). Comparison of serial PSA results should be interpreted with this fact in mind. This test was performed using the Siemens chemiluminescent method. Values obtained from different assay methods cannot be used interchangeably. PSA levels, regardless of value, should not be interpreted as absolute evidence of the presence or absence of disease. Performed By: #### 7 600, 5363, 14039 #### [facility] [place] [address] [facility] Laboratory Supervisor: Arthur Michele MD Laboratory - Chemistry and C hemistry - challengeon 06-05-2024 Albumin [Mass/Vol] 4.6 g/dL Normal 3.6 - 5.1 g/dL [facility], [facility].; [employer] [facility] [facility], [employer]. Albumin/Globulin [Mass ratio] 1.8 {ratio} Normal 1.0 - 2.5 [facility], [facility].; [facility], [employer]. ALP [Catalytic activity/Vol] 60 U/L Normal 35 - 144 U/L [facility].; [employer] [facility] ALT [Catalytic activity/Vol] 16 U/L Normal 9 - 46 U/L [facility], [facility].; [employer] [facility], [employer]. AST [Catalytic activity/Vol] 12 U/L Normal 10 - 35 U/L [facility], [facility].; [employer], [employer]. Bilirubin [Mass/Vol] 0.7 mg/dL Normal 0.2 - 1 .2 mg/dL [facility].; [employer], [employer]. Calcium [Mass/Vol] 9.7 mg/dL Normal 8.6 - 10. 3 mg/dL [employer] [facility] [facility], [facility].; [employer], [employer]. Chloride [Moles/Vol] 105 mmol/L Normal 98 - 11 0 mmol/L [facility].; [employer], [employer]. Cholesterol [Mass/Vol] 222 mg/dL Abnormal [employer] [facility], [facility].; [employer], [employer]. Cholesterol in HDL [Mass/Vol] 53 mg/dL Normal [employer] [facility].; [employer], [employer]. Cholesterol in LDL [Mass/Vol] 147 mg/dL Abnormal [employer] [facility].; [employer], [employer]. CO2 [Moles/Vol] 26 mmol/L Normal 20 - 32 mmol/L [facility].; [employer], [employer]. Creatinine [Mass/Vol] 0.99 mg/dL Normal 0.70 - 1.35 mg/dL [employer] [facility] [facility], [facility].; [employer], [employer]. GFR/1.73 sq M.predicted among non-blacks MDRD (S/P/Bld) [Vol rate/Area] 83 mL/min/{1.73_m2} Normal [facility].; [facility], [facility] Glucose [Mass/Vol] 108 mg/dL Abnormal 65 - 99 mg/dL [facility].; [facility], [facility] Potassium [Moles/Vol] 4.4 mmol/L Normal 3.5 - 5.3 mmol/L [facility]; [facility], [facility] Protein [Mass/Vol] 7.2 g/dL Normal 6.1 - 8.1 g/dL [facility]; [facility], [facility] Sodium [Moles/Vol] 138 mmol/L Normal 135 - 146 mmol/L [facility]; [facility], [facility] Triglyceride [Mass/Vol] 106 mg/dL Normal [facility]; [facility], [facility] Urea nitrogen [Mass/Vol] 24 mg/dL Normal 7 - 25 mg/dL [facility]; [facility], [facility] No Panel Informationon 06-05 BUN/CREATININE RATIO SEE NOTE: Normal 6 - [facility]; [facility], [facility] CHOL/HDLC RATIO 4.2 Normal [facility]; [facility], [facility] GLOBULIN 2.6 Normal 1.9 - 3.7 [facility]; [facility], [facility] NON HDL CHOLESTEROL 169 Abnormal [facility]; [facility] PSA, TOTAL <0.04 Normal [facility]; [facility], [facility] Laboratory - Chemistry and C hemistry - challengeon 03-10-2022 Albumin [Mass/Vol] 4.6 g/dL Normal 3.6 - 5.1 g/dL [facility].; [facility], [facility] Albumin/Globulin [Mass ratio] 1.8 {ratio} Normal 1.0 - 2.5 [facility]; [facility], [facility] ALP [Catalytic activity/Vol] 64 U/L Normal 35 - 144 U/L [facility].; [facility], [facility] ALT [Catalytic activity/Vol] 18 U/L Normal 9 - 46 U/L [facility]; [facility], [facility]. AST [Catalytic activity/Vol] 14 U/L Normal 10 - 35 U/L [facility].; [facility], [facility]. Bilirubin [Mass/Vol] 0.6 mg/dL Normal 0.2 - 1 .2 mg/dL [facility], [facility].; [facility], [facility]. Calcium [Mass/Vol] 9.4 mg/dL Normal 8.6 - 10. 3 mg/dL [facility].; [facility], [facility]. Chloride [Moles/Vol] 105 mmol/L Normal 98 - 11 0 mmol/L [facility].; [facility], [facility]. Cholesterol [Mass/Vol] 229 mg/dL Abnormal [facility].; [facility], [facility]. Cholesterol in HDL [Mass/Vol] 56 mg/dL Normal [facility], [facility].; [facility], [facility] Cholesterol in LDL [Mass/Vol] 151 mg/dL Abnormal [facility].; [facility], [facility]. CO2 [Moles/Vol] 23 mmol/L Normal 20 - 32 mmol/L [facility], [facility].; [facility], [facility]. Creatinine [Mass/Vol] 0.86 mg/dL Normal 0.70 - 1.35 mg/dL [facility], [facility].; [facility], [facility]. GFR/1.73 sq M.predicted among non-blacks MDRD (S/P/Bld) [Vol rate/Area] 95 mL/min/{1.73_m2} Normal [facility], [facility].; [facility], [facility]. Glucose [Mass/Vol] 103 mg/dL Abnormal 65 - 99 mg/dL [facility].; [facility], [employer] Potassium [Moles/Vol] 4.1 mmol/L Normal 3.5 - 5.3 mmol/L [facility], [facility].; [facility], [employer] Protein [Mass/Vol] 7.2 g/dL Normal 6.1 - 8.1 g/dL [facility], [facility].; [facility], [employer] Sodium [Moles/Vol] 137 mmol/L Normal 135 - 146 mmol/L [facility]; [facility] Triglyceride [Mass/Vol] 106 mg/dL Normal [facility]; [facility] TSH Qn 2.34 m[IU]/L Normal 0.40 - 4.50 {mIU/L} [facility]; [employer] [facility] Urea nitrogen [Mass/Vol] 20 mg/dL Normal 7 - 25 mg/dL [facility]; [employer] [facility] No Panel Informationon 03-10 BUN/CREATININE RATIO NOT APPLICABLE Normal - [facility]; [employer] [facility] CHOL/HDLC RATIO 4.1 Normal [facility]; [facility] GLOBULIN 2.6 Normal 1.9 - 3.7 [facility]; [employer] [facility] NON HDL CHOLESTEROL 173 Abnormal [facility]; [employer] [facility] PSA, TOTAL <0.04 Normal [facility]; [employer] [facility] Laboratory - Microbiology an d Antimicrobial susceptibilityon 02-05-2016 Bacteria identified Cx Nom (Stl) CULTURE STOOL Normal [facility]; [employer] [facility] [facility] Ova and parasites identified Trichrome stain Nom (Stl) Normal [facility]; [employer] [facility]. Laboratory - Chemistry and C hemistry - challengeon 02-15-2014 Bilirubin Ql (U) Negative [facility].; [employer] [facility] Ketones Ql (U) trace Normal [facility].; [employer] [facility] pH (U) 5.5 [pH] Normal [facility].; [employer] Specific gravity (U) [Rel density] 1.020 Normal [facility]; [employer] Urobilinogen Qn (U) 0.2 mg/dL Normal [facility]; [employer] [facility]. Laboratory - Hematology and Cell countson 02-15-2014 Hemoglobin Ql (U) Negative Normal [facility]; [employer]. Laboratory - Specimen inform ationon 02-15-2014 Appearance (U) concentrated Normal [facility] [employer].; [employer]. Color (U) dark Yellow Normal [employer].; [employer]. Laboratory - Urinalysison Glucose Test strip (U) [Mass/Vol] Negative Normal [facility] [employer].; [employer]. Leukocyte esterase Test strip Ql (U) Negative Normal [facility] [employer].; [employer]. Nitrite Ql (U) Negative Normal [facility] [employer].; [employer]. Protein Ql (U) Negative Normal [facility] [employer] [facility].; [employer]. Laboratory - Chemistry and C hemistry - challengeon 02-06-2014 Cholesterol [Mass/Vol] 184 mg/dL Normal 0 - 200 mg/dL [facility].; [employer]. Cholesterol in HDL [Mass or moles/Vol] 38 mg/dL Abnormal 40 - 60 mg/dL [employer].; [employer]. Cholesterol in LDL [Mass/Vol] 122 mg/dL Normal 0 - 129 mg/dL [facility] [employer].; [employer]. Cholesterol.total/Ch olesterol in HDL [Mass ratio] 4.8 {ratio} Normal 0.0 - 5.0 [facility] [employer].; [employer]. Glucose [Mass/Vol] 100 mg/dL Normal 74 - 106 mg/dL [facility] [employer].; [employer]. Lipid 1996 panel LIPID PROFILE Normal [facility].; [employer]. Prostate specific Ag [Mass/Vol] 7.3 ng/mL Abnormal 0.0 - 4.0 ng/mL [facility] [employer] [facility].; [employer]. Triglyceride [Mass/Vol] 122 mg/dL Normal 0 - 150 mg/dL [facility] [employer].; [employer], [employer]. Laboratory - Chemistry and C hemistry - challengeon 08-19-2011 Bilirubin Ql (U) Negative Normal [facility] [employer].; [employer]. Ketones Ql (U) Negative Normal [facility] [employer]. pH (U) 5.0 [pH] Normal 4.6 - 8.0 [employer].; [employer]. Specific gravity (U) [Rel density] 1.020 Normal 1.001 - 1.025 [employer].; [employer]. Laboratory - Hematology and Cell countson 08-19-2011 Hemoglobin Ql (U) Negative Normal [employer].; [employer]. Laboratory - Specimen inform ationon 08-19-2011 Appearance (U) clear Normal [facility] [employer]. Color (U) yellow Normal [employer].; [employer]. Laboratory - Urinalysison Glucose Test strip (U) [Mass/Vol] Negative Normal [employer].; [employer]. Leukocyte esterase Test strip Ql (U) Negative Normal [employer].; [employer]. Nitrite Ql (U) Negative Normal [facility] [employer].; [employer]. Protein Ql (U) Negative Normal [facility] [employer].; [employer]. No Panel Informationon 08-19 UA - UROBILINOGEN 0.2 mg/dL Normal [employer].; [employer]. Laboratory - Chemistry and C hemistry - challengeon 08-13-2011 Cholesterol [Mass/Vol] 208 mg/dL Abnormal 125 - 200 mg/dL [employer].; [employer]. Cholesterol in HDL [Mass/Vol] 39 mg/dL Abnormal [employer].; [employer]. Cholesterol in LDL [Mass/Vol] 147 mg/dL Abnormal [employer].; [employer], [employer]. Cholesterol.total/Ch olesterol in HDL [Mass ratio] 5.3 {ratio} Abnormal [employer].; [employer], [employer]. Glucose [Mass/Vol] 102 mg/dL Abnormal 65 - 99 mg/dL [facility] [employer].; [employer], [employer]. Prostate specific Ag [Mass/Vol] 3.2 ng/mL Normal 0.0 - 4.0 ng/mL [facility], [facility].; [facility], [facility] Triglyceride [Mass/Vol] 112 mg/dL Normal [facility].; [employer] [facility] [facility], [facility] Vital Signs Date Time Vital Sign Value Performing Clinician Facility 06-13-2024 07:53-0500 Body height 177.8 cm Penny Barrientos RN [facility], [facility].; [facility], [facility]. 06-13-2024 07:53-0500 Body mass index (BMI) [Ratio] 33.58 kg/m2 Penny Barrientos RN [facility].; [facility], [facility]. 06-13-2024 07:53-0500 Body surface area Derived from formula 2.23 m2 Penny Barrientos RN [facility], [facility].; [facility], [facility]. 06-13-2024 07:53-0500 Body weight 106.14 kg Penny Barrientos RN [facility].; [employer], [facility]. 06-13-2024 07:53-0500 Diastolic blood pressure 86 mm[Hg] Penny Barrientos RN [facility].; [employer] [facility] [facility]. Comment on above: Patient Position: Sitting; Cuff Location : Left Arm; Cuff Size: Large 06-13-2024 07:53-0500 Systolic blood pressure 132 mm[Hg] Penny Barrientos RN [place] [facility], [facility].; [employer] [facility]. Comment on above: Patient Position: Sitting; Cuff Location : Left Arm; Cuff Size: Large 10-25-2023 10:13-0400 Body height 177.8 cm Kenya Moscoso LPN [facility], [facility].; [facility], [facility]. 10-25-2023 10:13-0400 Body mass index (BMI) [Ratio] 33.14 kg/m2 Kenya Moscoso LPN [facility], [facility].; [employer] [place], [facility]. 10-25-2023 10:13-0400 Body surface area Derived from formula 2.22 m2 Nicky Danis CROWN BUFFER Tennyson [facility] [employer].; [facility]. 10-25-2023 10:0400 Body temperature 98.3 [degF] Kenya Moscoso LPN [facility].; [facility]. Comment on above: Method: Tympanic 10-25-2023 10:0400 Body weight 104.78 kg Kenya Moscoso LPN [facility], [facility].; [employer] [facility] [employer]. 10-25-2023 10:130400 Diastolic blood pressure 93 mm[Hg] Kenya Moscoso LPN [facility].; [employer]. Comment on above: Patient Position: Sitting; Cuff Location : Left Arm; Cuff Size: Large 10-25-2023 10:040 Heart rate 53 /min Kenya Moscoso LPN [facility], [facility].; [employer]. Comment on above: Pattern: Regular 10-25-2023 10:040 Inhaled oxygen concentration 21 % Kenya Moscoso [facility], [facility].; [employer]. Comment on above: Room air 10-25-2023 10:130400 SaO2% (BldA) [Mass fraction] 96 % Kenya Moscoso CROWN [employer]FFER [facility], [facility].; [facility], [employer]. 10-25-2023 10:130400 Systolic blood pressure 170 mm[Hg] Kenya Moscoso LPN [facility], [facility].; [facility] [employer]. Comment on above: Patient Position: Sitting; Cuff Location : Left Arm; Cuff Size: Large 03-17-2022 13:170400 Diastolic blood pressure 86 mm[Hg] Christel Newby [facility], [employer].; [employer]. Comment on above: Patient Position: Sitting; Cuff Location : Right Arm; Cuff Size: Large 03-17-2022 13:17-0400 Systolic blood pressure 126 mm[Hg] Christel Newby [facility], [employer].; [employer]. Comment on above: Patient Position: Sitting; Cuff Location : Right Arm; Cuff Size: Large 03-17-2022 13:100400 Body height 177.8 cm Christel Newby [facility], Inc.; [employer]. 03-17-2022 13:10-0400 Body mass index (BMI) [Ratio] 33.14 kg/m2 Christel Newby [facility], Inc.; [employer] 03-17-2022 13:10-0400 Body surface area Derived from formula 2.22 m2 Christel Newby [facility], [facility].; [employer] 03-17-2022 13:10-0400 Body weight 104.78 kg Christel Newby [facility], [facility].; [employer], [employer]. 03-17-2022 13:10-0400 Diastolic blood pressure 102 mm[Hg] Christel Newby [facility], [employer].; [employer], [employer]. Comment on above: Patient Position: Sitting; Cuff Location : Left Arm; Cuff Size: Large 03-17-2022 13:10-0400 Heart rate 103 /min Christel Newby [facility], [employer] [employer]. Comment on above: Pattern: Regular 03-17-2022 13:10-0400 Systolic blood pressure 155 mm[Hg] Christel Newby [facility], [employer].; [employer]. Comment on above: Patient Position: Sitting; Cuff Location : Left Arm; Cuff Size: Large 12-23-2020 10:38-0400 Body height 177.8 cm Kenya Moscoso [facility], Inc.; [employer]. 12-23-2020 10:38-0400 Body mass index (BMI) [Ratio] 32.43 kg/m2 Kenya Moscoso [facility], [facility].; [employer]. 12-23-2020 10:38-0400 Body surface area Derived from formula 2.2 m2 Kenya Moscoso [facility], [facility].; [employer]. 12-23-2020 10:38-0400 Body temperature 98.3 [degF] Kenya Moscoso [facility], [employer].; [employer]. Comment on above: Method: Tympanic 12-23-2020 10:38-0400 Body weight 102.51 kg Kenya Moscoso [facility], [facility].; [facility]. 12-23-2020 10:38-0400 Diastolic blood pressure 89 mm[Hg] Kenya Moscoso [facility], [facility].; [facility] [facility], [employer]. Comment on above: Patient Position: Sitting; Cuff Location : Left Arm; Cuff Size: Large 12-23-2020 10:38-0400 Heart rate 89 /min NickyBrenda Moscoso [facility], [facility].; [facility], [employer]. Comment on above: Pattern: Regular 12-23-2020 10:38-0400 Inhaled oxygen concentration 21 % [facility], [facility].; [facility], [employer]. Comment on above: Room air 12-23-2020 10:38-0400 SaO2% (BldA) [Mass fraction] 96 % [facility], [facility].; [facility], [facility]. 12-23-2020 10:38-0400 Systolic blood pressure 160 mm[Hg] Nicky Danis [facility], [facility].; [facility], [employer]. Comment on above: Patient Position: Sitting; Cuff Location : Left Arm; Cuff Size: Large 06-25-2020 14:27-0500 Body height 177.8 cm Jonatan Bennett MD Work Phone: [facility].; [facility], [employer]. 06-25-2020 14:27-0500 Body mass index (BMI) [Ratio] 32.71 kg/m2 Jonatan Bennett MD Work Phone: [facility].; [facility], [employer]. 06-25-2020 14:27-0500 Body surface area Derived from formula 2.21 m2 Jonatan Bennett MD Work Phone: [facility], [facility].; [employer] [facility] [employer]. 06-25-2020 14:27-0500 Body weight 103.42 kg Jonatan Bennett MD Work Phone: [facility] [employer].; [employer]. 06-25-2020 14:27-0500 Diastolic blood pressure 72 mm[Hg] Jonatan Bennett MD Work Phone: [employer] [facility] [employer].; [employer]. Comment on above: Patient Position: Sitting; Cuff Location : Left Arm; Cuff Size: Standard 06-25-2020 14:27-0500 Heart rate 68 /min Jonatan Bennett MD Work Phone: [employer].; [employer]. Comment on above: Pattern: Regular 06-25-2020 14:27-0500 Systolic blood pressure 130 mm[Hg] Jonatan Bennett MD Work Phone: [employer].; [employer]. Comment on above: Patient Position: Sitting; Cuff Location : Left Arm; Cuff Size: Standard 02-04-2016 17:27-0400 Body height 177.8 cm Rafaela Aiken LPN [facility].; [employer]. 02-04-2016 17:27-0400 Body mass index (BMI) [Ratio] 30.71 kg/m2 Rafaela Aiken LPN [facility] [employer].; [employer]. 02-04-2016 17:27-0400 Body surface area Derived from formula 2.15 m2 Rafaela Aiken LPN [facility], [facility].; [employer], [employer]. 02-04-2016 17:27-0400 Body temperature 98.9 [degF] Rafaela Aiken LPN [facility] [employer].; [employer]. Comment on above: Method: Tympanic 02-04-2016 17:27-0400 Body weight 97.07 kg Rafaela Aiken LPN [facility].; [employer]. 02-04-2016 17:27-0400 Diastolic blood pressure 86 mm[Hg] Rafaela Aiken LPN [employer] [facility].; [employer]. Comment on above: Patient Position: Sitting; Cuff Location : Right Arm; Cuff Size: Large 02-04-2016 17:27-0400 Heart rate 100 /min Rafaela Aiken LPN [facility] [employer] [facility], [employer]. Comment on above: Pattern: Regular 02-04-2016 17:27-0400 Systolic blood pressure 127 mm[Hg] Rafaela Aiken [facility], [facility].; [facility], [employer]. Comment on above: Patient Position: Sitting; Cuff Location : Right Arm; Cuff Size: Large 01-27-2016 12:59-0400 Body height 177.8 cm Kenya Moscoso [facility].; [employer] [facility], [employer]. 01-27-2016 12:59-0400 Body mass index (BMI) [Ratio] 31.14 kg/m2 Kenya Moscoso [facility].; [employer] [facility] 01-27-2016 12:59-0400 Body surface area Derived from formula 2.16 m2 NickyBrenda Moscoso [facility], Inc.; [employer] [facility], [employer]. 01-27-2016 12:59-0400 Body temperature 98.7 [degF] Kenya Moscoso [facility], [facility].; [facility], [employer]. Comment on above: Method: Tympanic 01-27-2016 12:59-0400 Body weight 98.43 kg Kenya Moscoso [facility], [facility].; [employer] [facility] 01-27-2016 12:59-0400 Diastolic blood pressure 86 mm[Hg] Kenya Moscoso [facility].; [facility], [employer]. Comment on above: Patient Position: Sitting; Cuff Location : Left Arm; Cuff Size: Large 01-27-2016 12:59-0400 Heart rate 99 /min Kenya Moscoso [facility], Inc.; [employer], [employer]. Comment on above: Pattern: Regular 01-27-2016 12:59-0400 Systolic blood pressure 139 mm[Hg] Kenya Moscoso [facility], [facility].; [employer], [employer]. Comment on above: Patient Position: Sitting; Cuff Location : Left Arm; Cuff Size: Large 11-05-2015 13:08-0400 Body height 177.8 cm Rafaela Aiken LPN [facility].; [employer] 11-05-2015 13:08-0400 Body mass index (BMI) [Ratio] 33 kg/m2 Rafaela Aiken LPN [facility] Inc.; [employer] 11-05-2015 13:08-0400 Body surface area Derived from formula 2.22 m2 Rafaela Aiken LPN [facility], Inc.; [employer] 11-05-2015 13:08-0400 Body weight 104.33 kg Rafaela Aiken LPN [facility].; [employer], [employer]. 11-05-2015 13:08-0400 Diastolic blood pressure 90 mm[Hg] Rafaela Aiken LPN [facility] Inc.; [employer] Comment on above: Patient Position: Sitting; Cuff Location : Left Arm; Cuff Size: Large 11-05-2015 13:08-0400 Heart rate 92 /min Rafaela Aiken LPN [facility].; [employer]. Comment on above: Pattern: Regular 11-05-2015 13:08-0400 Systolic blood pressure 150 mm[Hg] Rafaela Aiken LPN [employer].; [employer], [employer]. Comment on above: Patient Position: Sitting; Cuff Location : Left Arm; Cuff Size: Large 08-19-2011 08:59-0500 Body height 177.8 cm Ailin Myles CROWN BUFFER [facility].; [employer], [employer]. 08-19-2011 08:59-0500 Body mass index (BMI) [Ratio] 31.57 kg/m2 Ailin Traci Myles CROWN BUFFER [employer].; [employer], [employer]. 08-19-2011 08:59-0500 Body surface area Derived from formula 2.17 m2 Ailin Traci Myles CROWN BUFFER [facility].; [employer] 08-19-2011 08:59-0500 Body weight 99.79 kg Ailin Traci Myles CROWN [employer]FFER [employer].; [employer], [employer]. 08-19-2011 08:59-0500 Diastolic blood pressure 89 mm[Hg] Ailin Myles LPN [employer]. Comment on above: Patient Position: Sitting; Cuff Location : Left Arm; Cuff Size: Large 08-19-2011 08:59-0500 Heart rate 81 /min Ailinmonico Myles LPN [employer].; [employer] Comment on above: Pattern: Regular 08-19-2011 08:59-0500 Systolic blood pressure 144 mm[Hg] Ailin Traci Myles LPN [employer], [employer].; [employer] Comment on above: Patient Position: Sitting; Cuff Location : Left Arm; Cuff Size: Large Encounters Encounter Date Encounter Type Care Provider Facility Start: 06-15-2025 ambulatory Jackson Melvin [employer]EL[employer] Facility :[facility] Start: 05-16-2025 End: 05-16-2025 ambulatory Jackson Melvin [employer] DEVEL[employer] [place] Start: 12-13-2024 End: 12-13-2024 Orders Orlando Villarreal PA-C Work Phone: [employer]. Start: 12-08-2024 End: 12-08-2024 Historical Summary Orlando Villarreal PA-C Work Phone: [employer]. Start: 12-04-2024 End: 12-04-2024 Orders Orlando Villarreal PA-C Work Phone: [employer]. Start: 08-16-2024 End: 08-16-2024 amb[address] [facility] [place] Start: 07-04-2024 End: 07-04-2024 Orders Orlando Villarreal PA-C Work Phone: [employer]. Start: 06-19-2024 End: 06-19-2024 ambulatory ORLANDO VILLARREAL [facility] Start: 06-13-2024 Review Orlando rizzo PA-C Work Phone: [employer]. Start: 06-13-2024 End: 06-13-2024 Periodic preventive med est patient 65yrs& older Orlando Villarreal PA-C Work Phone: [employer]. Start: 06-13-2024 End: 06-13-2024 Patient encounter procedure Luke Praneeth PA-C Work Phone: [employer] Start: 06-05-2024 End: 06-05-2024 Orders Luke Praneeth PA-C Work Phone: [employer]. Start: 06-01-2024 End: 06-01-2024 Orders Luke Praneeth PA-C Work Phone: [employer] Start: 10-25-2023 End: 10-25-2023 Office outpatient visit 15 minutes Luke Praneeth PA-C Work Phone: [employer] Start: 03-17-2022 End: 03-17-2022 Patient encounter procedure Danoke Rpaneeth PA-C Work Phone: [employer]; [employer]. Start: 03-17-2022 End: 03-17-2022 Periodic preventive med est patient 65yrs& older Luke Praneeth PA-C Work Phone: [employer] Start: 03-10-2022 End: 03-10-2022 Orders Luke Praneeth PA-C Work Phone: [employer]. Start: 03-03-2022 End: 03-03-2022 Orders Luke Praneeth PA-C Work Phone: [employer] Start: 01-13-2022 End: 01-13-2022 Patient encounter procedure [facility] Start: 12-24-2020 End: 12-24-2020 Telephone follow-up Luke Praneeth PA-C Work Phone: [employer] Start: 12-23-2020 End: 12-23-2020 Office outpatient visit 10 minutes Luke Praneeth PA-C Work Phone: [employer]. Start: 06-25-2020 End: 06-25-2020 Patient encounter status [facility] [employer]. Start: 06-25-2020 End: 06-25-2020 Periodic preventive med est patient 40-64yrs Luke Praneeth PA-C Work Phone: [employer]. Start: 02-04-2016 End: 02-04-2016 Office outpatient visit 15 minutes Luke Praneeth PA-C Work Phone: [employer]. Start: 01-27-2016 End: 01-27-2016 Office outpatient visit 15 minutes Luke Praneeth PA-C Work Phone: [employer]. Start: 11-05-2015 End: 11-05-2015 Office outpatient visit 15 minutes Luke Praneeth PA-C Work Phone: [employer]. Start: 02-15-2014 End: 02-15-2014 Patient encounter procedure Luke Praneeth PA-C Work Phone: [employer]. Start: 02-15-2014 End: 02-15-2014 Routine general medical examination at a health care facility Rafaela Aiken LPN [employer].; [employer]. Start: 01-30-2014 End: 01-31-2014 Orders Luke Praneeth PA-C Work Phone: [employer]. Start: 01-30-2014 End: 01-30-2014 Historical Summary Luke Praneeth PA-C Work Phone: [employer]. Start: 08-19-2011 End: 08-19-2011 Patient encounter procedure Luke Praneeth PA-C Work Phone: [employer]. Start: 08-19-2011 End: 08-19-2011 Routine general medical examination at a health care facility Luke Praneeth PA-C Work Phone: [facility]; [employer]. Start: 08-13-2011 End: 08-13-2011 Orders Luke Praneeth [facility]-C [facility] Start: 07-30-2011 End: 07-30-2011 Orders Luke Praneeth PA-C Work Phone: [facility] Patient encounter procedure Kenya Moscoso CROWN BUFFER [facility]; [facility] Patient encounter procedure Penny Barrientos RN [facility]; [facility] Patient encounter procedure Danoke Wily TaPraneeth PA-C Work Phone: [facility]; [employer] Procedures Date Procedure Procedure Detail Performing Clinician Start: 06-13-2024 End: 06-13-2024 Adv care pln/ no alt dcsn mkr docd or refusal Luke E Praneeth PA-C Work Phone: Start: 06-13-2024 End: 06-13-2024 Depression screening Danoke Wily TaPraneeth PA-C Work Phone: Start: 06-13-2024 End: 06-13-2024 Falls risk assessment documented Luke E Praneeth PA-C Work Phone: Start: 06-13-2024 End: 06-13-2024 PPPS, subseq visit Orlando Villarreal P A-C Work Phone: Start: 06-13-2024 End: 06-13-2024 Pt falls assess docd w/o fall/injury past year Danoke E Praneeth PA-C Work Phone: Start: 06-13-2024 End: 06-13-2024 Scr dep neg, no plan reqd Orlando Rajput tler PA-C Work Phone: Start: 06-13-2024 End: 06-13-2024 Ecg routine ecg w/least 12 lds w/i&r Luke E Praneeth PA-C Work Phone: Start: 06-13-2024 End: 07-03-2024 Xtrnl ecg & 48 hr record scan stor w/r&i Luke E Praneeth PA-C Work Phone: Start: 06-05-2024 End: 06-05-2024 Lab findings surveillance Penny trejo RN Comment on above: Results:. 108 in CMP Start: 06-05-2024 End: 06-05-2024 Lipid panel results documented & reviewed Penny Barrientos RN Start: 06-05-2024 End: 06-05-2024 Prostate specific antigen measurement Penny Barrientos RN Comment on above: Results:. <0.04 Start: 03-17-2022 End: 08-20-2022 Body mass index documented Luke E Hochst etler PA-C Work Phone: Start: 03-17-2022 End: 03-17-2022 Adv care pln/ no alt dcsn mkr docd or refusal Luke E Praneeth PA-C Work Phone: Start: 03-17-2022 End: 03-17-2022 Depression screening Luke E Praneeth PA-C Work Phone: Start: 03-17-2022 End: 03-17-2022 Falls risk assessment documented Luke E Praneeth PA-C Work Phone: Start: 03-17-2022 End: 03-17-2022 PPPS, subseq visit Luke E Praneeth P A-C Work Phone: Start: 03-17-2022 End: 03-17-2022 Pt falls assess docd w/o fall/injury past year Luke E Praneeth PA-C Work Phone: Start: 03-17-2022 End: 08-20-2022 Removal impacted cerumen instrumentation unilat Luke E Praneeth PA-C Work Phone: Start: 03-17-2022 End: 03-17-2022 Scr dep neg, no plan reqd Orlando link PA-C Work Phone: Start: 03-10-2022 End: 03-10-2022 Lab findings surveillance Kenya rosario CROWN BUFFER Comment on above: Results:. 103 Start: 03-10-2022 End: 03-10-2022 Lipid panel results documented & reviewed Kenya Moscoso CROWN BUFFER Comment on above: Total 229, HDL 56, T rig 106, LDL 151 Start: 03-10-2022 End: 03-10-2022 Prostate specific antigen measurement Kenya Moscoso WALLACE Comment on above: Results:. <0.04 Start: 03-10-2022 End: 03-10-2022 Thyrotropin [Units/volume] in Serum or Plasma Kenya Moscoso CROWN BUFFER Comment on above: 2.34 Start: 01-13-2022 CT of face Start: 06-25-2020 End: 06-25-2020 Depression screening Jonatan Bennett MD Work Phone: Start: 06-25-2020 End: 06-25-2020 Scr dep neg, no plan reqd Jonatan Bennett MD Work Phone: Start: 07-19-2016 End: 07-19-2016 Prostatectomy Christel Newby CMA Comment on above: [facility] Start: 11-05-2015 End: 11-05-2015 Arthrocentesis aspir&/inj interm jt/burs w/o us Jonatan Bennett MD Work Phone: Start: 11-23-2011 End: 11-23-2011 Screening colonoscopy Kenya Moscoso CROWN [employer] Most Recent Cardio Report Dano Villarreal PA-C Work Phone: Comment on above: No Cardiology record s 12/08/2024 Vasectomy Christel Newby HAY CHOPPER Vasectomy Penny dove RN Plan of Treatment Date Care Activity Detail Author Start: 12-13-2024 [facility] [employer] [facility]. Start: 12-13-2024 Nursing evaluation o f patient and report [facility]. Start: 06-13-2024 End: 06-13-2024 Xtrnl ecg & 48 hr record scan stor w/r&i 24 Hr Holter ([id number]) Date: 13-Jun-2024 [facility]; [facility] Start: 06-13-2024 Patient encounter procedure Medical; PHYSICAL - awv [facility] Start: 13-Jun-2024 08:20-05:00 SHAYY Villarreal Appointment Request [facility] Start: 06-05-2024 Comprehensive metabo lic panel CMP w/ GFR* ([id number]) Start: 05-Jun-2024 Request [facility]; [employer] Start: 06-05-2024 Assay of prostate sp ecific antigen total [facility]; [employer] Start: 06-05-2024 [facility] [employer] Start: 06-05-2024 Nursing evaluation o f patient and report Medical; [facility] Start: 05-Jun-2024 08:50-05:00 ROOM, PROCEDURE (DRAW) [facility]ment [facility] Immunizations Immunization Date Immunization Notes Care Provider Venu warren 08-19-2011 tetanus toxoid, reduced diphtheria toxoid, and acellular pertussis vaccine, adsorbed Orlando Villarreal PA-C Work Phone: [facility]; [employer]. Comment on above: Site: Deltoid (Left) VIS Given: * Tetanus/Diphtheria/(Pertussis) (Td/Tdap) (06/05/08) Payers Date Payer Category Payer Self-pay [id number] 2024 Unknown [id number] 1955 Unknown [id number] Unknown SELF PAY INSURANCE [id number] Unknown ANTH MEDICARE PREFERRED-PP O Unknown [id number] Unknown [id number] Unknown [id number] Social History Date Type Detail Facility Start: 12-21-2020 Tobacco smoking stat [facility] Unknown if ever smoked [facility] Work Phone: Start: 1955 Sex Assigned At Male [facility] Work Phone: Alcohol Use: Alcohol Use: ; Occasional alcohol use. [employer]; [employer] Caffeine Use Caffeine Use [employer]; [employer] Current Work/Study Status: Current Work/Study Status: ; Full-time. [employer]; [employer] Tobacco Use: Tobacco Use: ; N ever smoker. [employer]; [employer] Full-time [employer] Work Phone: Occasional alcohol use [employer]; [employer] Work Phone: Never smoked tobacco [employer]; [employer] Work Phone: Evaluation note Note Date & Type Note Facility Evaluation note No assessment information availa ble [facility] Work Phone: Chief Complaint and Reason for Visit Chief Complaint CHRONIC SINUSITIS Advance Directives No Advanced Directives Records Found Advance Directive Response Recorded Date/ Time Living Will Yes December 21, 2020 3 :52pm Power of Assistant Softball Coach Yes December 21, 2020 3:52pm Family History No Family History Records Found Arthritis Status:Active Comments:Mother. Hypertension Status:Active Comments:Father. Arthritis Status:Active Comments:Mother. Hypertension Status:Active Comments:Father. Arthritis Status:Active Comments:Mother. Hypertension Status:Active Comments:Father. Arthritis Status:Active Comments:Mother. Hypertension Status:Active Comments:Father. Arthritis Status:Active Comments:Mother. Hypertension Status:Active Comments:Father. Arthritis Status:Active Comments:Mother. Hypertension Status:Active Comments:Father. Arthritis Status:Active Comments:Mother. Hypertension Status:Active Comments:Father. Arthritis Status:Active Comments:Mother. Hypertension Status:Active Comments:Father. Arthritis Status:Active Comments:Mother. Hypertension Status:Active Comments:Father. Arthritis Status:Active Comments:Mother. Hypertension Status:Active Comments:Father. Arthritis Status:Active Comments:Mother. Hypertension Status:Active Comments:Father. Arthritis Status:Active Comments:Mother. Hypertension Status:Active Comments:Father. Arthritis Status:Active Comments:Mother. Hypertension Status:Active Comments:Father. Arthritis Status:Active Comments:Mother. Hypertension Status:Active Comments:Father. Summary Purpose Additional Source Comments Goals (unrecognized section and content) Goals may be documented in a n alternate section (unrecognized sect ion and content) No Status Records FoundNo Status Records FoundNo Status Records Found INFORMATION SOURCE (unrecogn ized section and content) DATE CREATED AUTHOR 06/19/2024 [facility] DATE CREATED AUTHOR AUTHOR'S ORGANIZ ATION 12/16/2024 [facility] DATE CREATED AUTHOR AUTHOR'S ORGANIZ ATION 05/26/2025 [facility] FOR RECORDS PERTAINING TO PATIENTS WHO ARE OR HAVE BEEN ENROLLED IN A CHEMICAL DEPENDENCY/SUBSTANCEABUSE PROGRAM, SOME INFORMATION MAY BE OMITTED. This clinical summary was aggregated from multiple sources. Caution should be exercised in using it in the provision of clinical care. This summary normalizes information from multiple sources, and as a consequence, information in this document may materially change the coding, format and clinical context of patient data. In addition, data may be omitted in some cases. CLINICAL DECISIONS SHOULD BE BASED ON THE PRIMARY CLINICAL RECORDS. [email or web address] provides no warranty or guarantee of the accuracy or completeness of information in this document.
--- NOTE | 2025-06-15 06:00 | ECHOD_ITS ---
Reason For Study Reason For Study: RBBB/ECTOPY Procedure This was a 2D Doppler, Color Flow transthoracic echocardiogram. Exam performed in department. Left Ventricle Normal LV size. The left ventricular ejection fraction is 55 %. No regional wall motion abnormalities noted. Right Ventricle Normal RV size. Normal systolic function. Atria Normal left atrium. Normal right atrium. Mitral Valve Normal mitral valve. Tricuspid Valve Normal tricuspid valve. Mild (1+) tricuspid valve insufficiency. Pulmonary artery systolic pressure is 30 mmHg. Aortic Valve Normal aortic valve. Pulmonic Valve Normal pulmonic valve. Great Vessels Normal aortic root. The pulmonary artery is normal size. Inferior vena cava collapse with respiration. Pericardium/Pleural No pericardial effusion. MMode/2D Measurements & Calculations LVIDd: 4.8 cm IVSd: 1.2 cm LVOT diam: 2.1 cm LVIDs: 2.8 cm LVPWd: 1.0 cm LVOT area: 3.6 cm2 RVDd: 3.9 cm FS: 41.7 % Ao root diam: 3.5 cm asc Aorta Diam: 3.8 cm LAV(MOD- bp): 59.4 ml LAV(MOD- bp) Indexed: 26.8 ml/m2 LAV(MOD- sp2): 58.5 ml LAV(MOD- sp4): 60.1 ml SV(MOD- sp4): 47.1 ml LVAd ap4: 28.6 cm2 LVAd ap2: 26.3 cm2 LVLd ap4: 7.9 cm LVLd ap2: 8.0 cm SI(MOD- sp4): 21.3 ml/m2 EDV(MOD-sp4): 85.2 ml EDV(MOD-sp2): 71.2 ml EDV(sp4-el): 87.4 ml EDV(sp2-el): 73.5 ml LVAs ap4: 17.6 cm2 LVAs ap2: 17.1 cm2 LVLs ap4: 6.8 cm LVLs ap2: 7.3 cm ESV(MOD-sp4): 38.1 ml ESV(MOD-sp2): 32.8 ml ESV(sp4-el): 38.8 ml ESV(sp2-el): 33.9 ml EF(MOD-sp4): 55.3 % EF(MOD-sp2): 54.0 % EF(sp4-el): 55.6 % SV(MOD-sp2): 38.4 ml SV(sp4-el): 48.6 ml Ao sinus diam: 3.5 cm SI(MOD-sp2): 17.3 ml/m2 Ao ST Junction: 3.1 cm LA dimension(2D): 3.7 cm LA A4 area: 19.5 cm2 TAPSE: 1.7 cm RA A4 area: 12.3 cm2 Doppler Measurements & Calculations Ao V2 max: 152.5 cm/sec LV V1 max: 128.0 cm/sec SV(LVOT): 93.5 ml Ao max P.3 mmHg LV V1 max P.6 mmHg Ao V2 mean: 99.1 cm/sec LV V1 mean P.5 mmHg Ao mean P.5 mmHg LV V1 mean: 103.9 cm/sec Ao V2 VTI: 30.3 cm LV V1 VTI: 25.8 cm AV (velocity ratio): 0.85 MARYLU(I,D): 3.1 cm2 MARYLU(V,D): 3.0 cm2 PA V2 max: 147.9 cm/sec TR max crispin: 252.4 cm/sec TR max P.5 mmHg ECHO/Echo Complete Interpretation Summary Normal LV size. The left ventricular ejection fraction is 55 %. Mild (1+) tricuspid valve insufficiency. Pulmonary artery systolic pressure is 30 mmHg. Ordering Physician: Jackson Melvin Referring Physician: Jackson Melvin Performed By: Linda Mcmullen RDCS
--- NOTE | 2025-06-15 16:12 | STRESSREP ---
Stress Test Report Pharmacologic myocardial perfusion stress test. 70-year-old man with a history of abnormal EKG. Resting EKG demonstrates sinus rhythm with a right bundle branch block with a rate of 80 bpm. Resting blood pressure is 146/84 mmHg. 0.4 mg of regadenoson was infused per usual protocol followed by rapid intravenous saline flush injection. Continuous EKG monitoring was performed. The maximum heart rate was 91 bpm which was 60% of max impacted heart rate the maximum workload was 1 metabolic equivalent. At rest there were no ST or T wave changes noted to suggest ischemia and at peak infusion nonspecific ST changes were noted which did not meet the criteria for ischemia. No clinical angina is noted. The final blood pressure was 152/80 mmHg. Myocardial perfusion protocol. 13.7 mCi of technetium 99m sestamibi was injected at rest. 0.4 mg of regadenoson was infused per usual protocol. At peak infusion 45 mCi of technetium 99m sestamibi was injected stress images were obtained stress and rest images were reconstructed and compared in the short axis vertical long and horizontal long axis. Gated images were also obtained. Perfusion SPECT analysis: Review of the stress images demonstrate normal uptake of tracer noted in all areas of the myocardium. The resting images similar demonstrated normal uptake of tracer noted in all areas of the myocardium. No areas of reversibility are noted to suggest ischemia and no previous infarct is noted. gated SPECT analysis: The gated ejection fraction is 78%. Conclusion: Normal pharmacologic myocardial perfusion stress test. Preserved ejection fraction.
== END | disposition home or self-care (01) ==
LOC: CVS 05:57
PROVIDERS: PCP Physician Assistant; Referring Provider Nurse Practitioner Family; Visit Provider Nurse Practitioner Family
DX: I49.9 Cardiac arrhythmia, unspecified (principal); I10 Essential (primary) hypertension; E78.5 Hyperlipidemia, unspecified; E66.9 Obesity, unspecified; R94.31 Abnormal electrocardiogram [ECG] [EKG]
CPT/HCPCS: 78452; 93017; 93306; A9500; A4216; J2785